=== PATIENT | female | born 1965 | race Caucasian/White ===

== ENCOUNTER 2022-07-20 14:54 | Outpatient (CLI) | payer OTHER | END 2022-07-20 14:55 | disposition home or self-care (01) | LOC: NAV RAD 14:54 | PROVIDERS: ATTEND Family Medicine | DX: Z02.71 Encounter for disability determination (principal); J43.9 Emphysema, unspecified; M47.816 Spondylosis without myelopathy or radiculopathy, lumbar region | CPT/HCPCS: 71046; 72100 ==